=== PATIENT | female | born 1950 | race Caucasian/White ===

== ENCOUNTER → 2016-12-29 | Outpatient (CLI) | payer OTHER | LOC: MC.RAD 08:32 | DX: Z12.31 Encounter for screening mammogram for malignant neoplasm of breast (principal) ==

== ENCOUNTER → 2020-02-13 | Outpatient (CLI) | payer MEDICARE ==
[~2020-02-13] MED LIST: CARDIZEM CD 18180 MG PO; CORDARONE200 MG/TAB PO; ELIQUIS 5MG PO; SYNTHROID0.05 MG/TA PO
== END ==
LOC: MC.RAD 08:22
DX: Z12.31 Encounter for screening mammogram for malignant neoplasm of breast (principal)